=== PATIENT | female | born 1950 | race Caucasian/White ===

== ENCOUNTER 2022-01-03 10:30 | Outpatient (CLI) | payer MEDICARE, OTHER, SELFPAY ==
--- NOTE | 2022-01-03 10:54 | MM_ITS ---
WS: [id number] SCREENING DIGITAL TOMOSYNTHESIS MAMMOGRAM WITH CAD HISTORY: SCREEN COMPARISON: 01/04/2018 and 05/07/2015 Bilateral CC and MLO with tomosynthesis views submitted. Synthetic mammography reviewed. Computer aid ed detection analyzed. Breast composition: There are scattered areas of fibroglandular density. No suspicious masses, microc alcifications or architectural distortion. MM/[place] [id number] IMPRESSION: BI-RADS: 1-Negative FOLLOW UP: 1 Year Follow-up
== END 2022-01-03 10:31 | disposition home or self-care (01) ==
PROVIDERS: PCP Internal Medicine; Visit Provider Internal Medicine
DX: Z12.31 Encounter for screening mammogram for malignant neoplasm of breast (principal)
CPT/HCPCS: 77063; 77067

== ENCOUNTER 2024-06-30 10:28 | Outpatient (CLI) | payer MEDICARE, SELFPAY ==
--- NOTE | 2024-06-30 10:33 | MM_ITS ---
WS: [id number] BILATERAL SCREENING DIGITAL TOMOSYNTHESIS MAMMOGRAM WITH CAD HISTORY: SCREENING COMPARISON: 01/03/2022, 01/04/2018 Bilateral CC and MLO views with tomosynthesis and synthetic mammography submitted. Computer aided detection analyzed. Breast composition: There are scattered areas of fibroglandular density. No suspicious masses, microcalcifications or architectural distortion. Benign lymph node central posterior LEFT breast. MM/MM scr BI tomosynthesis [id number] IMPRESSION: BI-RADS: 2 - Benign. FOLLOW UP: 1 Year Follow-up
== END 2024-06-30 10:29 | disposition home or self-care (01) ==
LOC: RAD 10:29
PROVIDERS: PCP Family Medicine; Visit Provider Family Medicine
DX: Z12.31 Encounter for screening mammogram for malignant neoplasm of breast (principal); R92.323 Mammographic fibroglandular density, bilateral breasts; R59.0 Localized enlarged lymph nodes
CPT/HCPCS: 77063; 77067

== ENCOUNTER 2024-12-28 15:18 | Outpatient (CLI) | payer MEDICARE, SELFPAY ==
--- NOTE | 2024-12-28 15:37 | XR_ITS ---
WS: [id number] DEXA (DUAL ENERGY X-RAY ABSORPTIOMETRY) Bone mineral density was performed using a [employer] machine. HISTORY: ASYMPTOMATIC MENOPAUSAL STATE COMPARISON: None available. Lumbar spine BMD (L1-L4): 1.342 g/cm2 T score: 1.4 Z score: 3.2 Total hip BMD: Left: 0.854 g/cm2. T score: -1.2 Z score: 0.5 Right: 0.882 g/cm2. T score: -1.0 Z score: 0.7 10 year probability of a major osteoporotic fracture is 15.2%. XR/XR DEXA axial skeleton* [id number] IMPRESSION: OSTEOPENIA based upon the WHO classification for females.
== END 2024-12-28 15:19 | disposition home or self-care (01) ==
LOC: RAD 15:21
PROVIDERS: PCP Family Medicine; Visit Provider Family Medicine
DX: Z13.820 Encounter for screening for osteoporosis (principal); Z78.0 Asymptomatic menopausal state; M85.88 Other specified disorders of bone density and structure, other site
CPT/HCPCS: 77080